=== PATIENT | female | born 1995 | race Caucasian/White ===

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

== ENCOUNTER → 2021-09-01 | Outpatient (CLI) | payer OTHER ==
[~2021-09-01] MED LIST: PRENATAL TABLE1 EAC1 PO; RANITIDINE HCL150 M1 PO; ZANTAC 150 MG150 MG PO
== END ==
LOC: KOH-I 08-25 16:15
DX: G43.109 Migraine with aura, not intractable, without status migrainosus (principal); R42 Dizziness and giddiness; R11.2 Nausea with vomiting, unspecified; H83.3X9 Noise effects on inner ear, unspecified ear; H53.149 Visual discomfort, unspecified; H53.9 Unspecified visual disturbance
CPT/HCPCS: 70551